=== PATIENT | female | born 1965 | race American Indian/Alaskan Native ===

== ENCOUNTER 2021-09-05 11:36 | Emergency (ER) | payer SELFPAY ==
[2021-09-05 13:13] VITALS: BP 144/67; PULSE 63
== END 2021-09-05 13:47 | disposition home or self-care (01) ==
LOC: MW.ED 11:36
DX: Z00.00 Encounter for general adult medical examination without abnormal findings (principal); Z91.048 Other nonmedicinal substance allergy status
CPT/HCPCS: 99282; 99283